=== PATIENT | male | born 1955 | race Caucasian/White ===

== ENCOUNTER 2022-07-24 04:14 | Emergency (ER) | payer BC ==
[~2022-07-24] VITALS: Ht 185.4 cm; Wt 59.0 kg
[2022-07-24 04:20] VITALS: BP_SYST 83
--- NOTE | 2022-07-24 04:36 | NUR ---
PT HERE ACCOMPANIED BY HIS C/O SOB PER PT FOR AWHILE NOW AND PROGRESSIVELY GETTING WORST W/ THROAT DISCOMFORT. PT STATES THAT HE IS ON HOME O2 AT HOME. DENIES FEVER AND CHEST DONALDO. PER PT HE FEELS THAT HE IS DEHYDRATED. PT ASSISTED TO ROOM 6, PLACED ON CARDIAC MONITORS AND O2 VIA NC.
[2022-07-24] MEDS ORDERED: cefTRIAXone 1 GM IVPB PREMIX 50 ML IV ONE ×2 (05:15→14:00)
[2022-07-24] MEDS ORDERED: NACL 0.9% 1,000 ML IV ONE ×2 (05:15→12:00)
--- NOTE | 2022-07-24 05:20 | NUR ---
ERMD AT BEDSIDE
--- NOTE | 2022-07-24 05:41 | NUR ---
pt taken to ct
--- NOTE | 2022-07-24 05:52 | NUR ---
LAB AT BEDSIDE
[2022-07-24 06:21] LABS: ANION GAP 5 (5-15); CALCIUM 9.7 mg/dL (8.4-11.0); CHLORIDE 99 mmol/L (98-107); CREATININE 0.67 mg/dL (0.55-1.30); GLUCOSE 120 mg/dL (70-99); HEMATOCRIT 28.2 % (36-54); MEAN CORPUSCULAR VOLUME 84 fL (79.0-98.0); PLATELET COUNT (AUTO) 684 K/uL (130-430); POTASSIUM 3.9 mmol/L (3.5-5.1); RED BLOOD CELL COUNT(AUTO) 3.37 MIL/uL (4.2-6.2); RED CELL DISTRIBUTION WIDTH 14.6 % (9.0-15.0); UREA NITROGEN, BLOOD 13 mg/dL (8-21)
[2022-07-24 06:26] LABS: GFR AFRICAN AMERICAN 153 mL/min (>90)
[2022-07-24 06:28] LABS: ALANINE AMINOTRANSFERASE 89 U/L (12-78); ALBUMIN 1.5 g/dL (3.4-4.8); ASPARTATE AMINOTRANSFERASE 41 U/L (10-37); PHOSPHORUS 3.1 mg/dL (2.7-4.5); TOTAL BILIRUBIN 0.7 mg/dL (0.0-1.0)
[2022-07-24 06:50] LABS: BAND % (MANUAL) 0 % (0-6); BASOPHILS % (MANUAL) 0 % (0-2); EOSINOPHILS % (MANUAL) 0 % (0-7); LYMPHOCYTES % (MANUAL) 5 % (20-46); MONOCYTES % (MANUAL) 3 % (0-11)
--- NOTE | 2022-07-24 07:15 | NUR ---
RECEIVED FANNY RN, FROM [facility] RN. PT IS HERE FOR SOB, PT STATES HE HAS A THROAT DIVERTICULI/POCKET THAT DOES NOT ALLOW HIM TO SWALLOW FOOD. PT DRINKS ORAL SUPPLEMENTS AND STATES HE HAS LOST 50LBS WITHIN A YEAR. PT HAS SOB, [place], RR 30, LUNG SOUNDS DIMINISHED BILATERALLY, ON 02 N/C AT 2LPM. O2 SAT 97%. PT IS AAOX4. NONCOMPLIANT WITH SOME CARE, REFUSING COVID SWAB AT THIS TIME. DR. GIRALDO MADE AWARE. ABDOMEN FLAT, SOFT, NONTENDER. BOWEL SOUNDS X4. DENIES N/V/D/C. DISTAL PULSES NORMAL, SKIN WARM, CAP REFILL < 3 SECS, NO EDEMA. PT HAS IV CATH TO LFA 22G. DENIES PAIN. SIDERAILS UP X2.
--- NOTE | 2022-07-24 08:00 | NUR ---
IV TO RFA IS INFILTRATED, IV DC'D, PRESSURE APPLIED AND DRESSED WITH GAUZE
--- NOTE | 2022-07-24 08:09 | NUR ---
# 22 gauge angiocath placed to RFA. Use of asceptic technique. Opsite placed over site. Blood return noted. Blood for lab drawn from site. Flushed with 10 cc of normal saline. No evidence of infiltration noted. Patient tolerated well.
--- NOTE | 2022-07-24 08:18 | NUR ---
PT TAKEN FOR CT SCAN. PT'S IV CATH 22G TO LFA INFILTRATED, REMOVED INTACT. SITE WNL. COVERED WITH GAUZE AND BANDAID. NEW IV CATH 18G PLACED TO RAC. SITE WNL. PT DENIES PAIN. PT INITIALLY REFUSED COVID SWAB, EXPLAINED INDICATIONS, RISKS AND BENEFITS. PT STATED HE IS OKAY TO HAVE SWAB PREFORMED.
[2022-07-24] MEDS ORDERED: iohexoL 300 mgI/mL, 150 ML INFUS..BTL IV ONE (08:44)
[2022-07-24 11:28] LABS: BILIRUBIN,URINE NEGATIVE (NEGATIVE); BLOOD, URINE NEGATIVE (NEGATIVE); CLARITY/URINE CLEAR (CLEAR); COLOR,URINE YELLOW (YELLOW); GLUCOSE,URINE NEGATIVE (NEGATIVE); KETONES,URINE NEGATIVE (NEGATIVE); LEUKOCYTE ESTERASE ,URINE NEGATIVE (NEGATIVE); NITRITE, URINE NEGATIVE (NEGATIVE); PROTEIN URINE TRACE (NEGATIVE)
[2022-07-24 11:44] LABS: BACTERIA,URINE None Seen /HPF (None Seen); RBC,URINE 0-3 /HPF (0-3); WBC,URINE 0-3 /HPF (0-3)
--- NOTE | 2022-07-24 11:59 | NUR ---
Admit bed requested Patient will be admitted to care of . Admitted to Tele unit. Diagnosis SOB, PLEURAL EFFUSION Inpatient (Yes or No) N Observation (Yes or No) Y Orientation concerns or request close to nursing station (Yes or No) N Covid Status NEG On vent or bipap NO Isolation requirements NO Needs a sitter N From Home (Yes or if No enter name of facility) Y Requires Dialysis (Yes or No) N Med Rec Completed (Yes of No) YES
--- NOTE | 2022-07-24 13:04 | NUR ---
DR. GIRALDO AT BEDSIDE TO INFORM PT WILL BE TRANSFERRED TO A HIGHER LEVEL OF CARE. PT AGREES WITH POC.
--- NOTE | 2022-07-24 14:00 | NUR ---
MED REC NOT ADDED TO , PT HAS NO HOME MEDS. PT PREFERS ALTERNATIVE MEDICINE.
--- NOTE | 2022-07-24 14:03 | NUR ---
REPORTED TO DR. CATALAN PT IS DEHYDRATED AND DOES NOT TOLERATE FOOD WELL DUE TO THROAT DISCOMFORT. RECEIVED ORDER FOR D51/2 NS AT 100ML/HOUR. ORDER CARRIED OUT. PT MADE AWARE.
[2022-07-24] MEDS ORDERED: D5/0.45 NS 1,000 ML IV SCH (14:15)
--- NOTE | 2022-07-24 18:29 | NUR ---
PAGED DR. CATALAN TO UPDATE HIM ON PT'S MEDICAL HX, PT'S SISTER STATES PT HAS HX OF HEPATITIS BUT IS UNAWARE IF IT'S A, B, OR C. AWAITING CALL BACK. Addendum: 07/24/22 at 1831 by [id number] DISREGARD, CHARTING DONE ON WRONG PT.
--- NOTE | 2022-07-24 20:23 | NUR ---
Pt resting comfortably in bed AOX4 VSS Able to make needs known NAD at this time
--- NOTE | 2022-07-24 22:42 | NUR ---
Called benjamín to for report. RN busy at this time Will call back
[2022-07-24 23:12] VITALS: BP_SYST 116
--- NOTE | 2022-07-24 23:13 | NUR ---
Patient to be transferred to [facility]. Is being transferred due to higher level of care. Receiving facility has accepting physician and available space. ER physician has signed transfer form. Patient or responsible libertarian has agreed to transfer and signed form. Patient belongings inventoried and will be sent with patient. Copy of nursing notes, lab reports, EKG, Physicians Orders and X-rays to be sent with patient. Report called to Natalya at receiving facility. Receiving physician is Dr. Medina.
== END 2022-07-24 23:12 | disposition short-term general hospital (02) ==
LOC: SED 04:14
DX: R06.02 Shortness of breath (principal); K59.00 Constipation, unspecified; R05.9 Cough, unspecified; Z79.899 Other long term (current) drug therapy; Z20.822 Contact with and (suspected) exposure to COVID-19
CPT/HCPCS: 99285; 96365; 71250; 71045; 96361; 96367; 87426; 85027; 80053; 81000; 83735; 84100; 85007; 87040; 84484; 36415; 93005; 76376; 96368; 76937; 83605; Q9967 ×2; J0696; J7030